=== PATIENT | female | born 1950 | race Caucasian/White ===

== ENCOUNTER 2017-03-22 06:46 | Inpatient (IN) | payer OTHER, MEDICARE ==
[~2017-03-22] VITALS: Ht 149.9 cm; Wt 36.7 kg
[2017-03-22 06:47] VITALS: BP 148/90
[2017-03-22 07:04] LABS: BE -7.5 mmol/L (-2 to +3); HCO3 19.3 mmol/L (22.0-26.0); PCO2 43.8 mmHg (35.0-45.0); PO2 90.7 mmHg (75.0-100.0)
[2017-03-22 07:06] LABS: pH 7.262 (7.340-7.450)
[2017-03-22 07:28] LABS: HEMATOCRIT 45.7 % (37.0-47.0); HEMOGLOBIN 15.2 gm/dL (12.0-15.0); MCH 32.7 pg (26.0-34.0); MCHC 33.3 g/dL (28.0-37.0); MCV 98.3 fL (80.0-100.0); MPV 8.3 fl. (7.2-11.1); NUCLEATED RBCS 0 /100WBC; PLATELET COUNT* 344 thou/uL (150-400); RBC 4.65 mil/uL (4.20-5.00); RDW-CV 12.8 % (10.5-14.5); WBC 13.6 thou/uL (4.0-11.0)
[2017-03-22 07:33] LABS: CALCIUM 7.8 mg/dL (8.5-10.1); CREATININE 0.8 mg/dL (0.6-1.3); POTASSIUM 3.7 mmol/L (3.5-5.1)
[2017-03-22 07:44] LABS: TOTAL BILIRUBIN 0.7 mg/dL (<0.1-1.0); TOTAL PROTEIN 5.6 g/dL (6.4-8.2); TROPONIN-I LEVEL 0.07 ng/mL (<0.06)
[2017-03-22 08:01] LABS: ABSOLUTE EOSINOPHILS 0.1 thou/uL (0.0-0.7); ABSOLUTE LYMPHOCYTES 0.8 thou/uL (0.8-5.3); ABSOLUTE NEUTROPHILS 12.6 thou/uL (1.6-8.1)
[2017-03-22 08:02] LABS: PLATELET ESTIMATE ADEQUATE
[2017-03-22 09:26] VITALS: BP 126/69
--- NOTE | 2017-03-22 10:00 | NUR ---
CARLIE NOTIFIED UPON PT RETURN. PT CONNECTED TO MONITOR AND O2
[2017-03-22 10:35] VITALS: BP 128/81
[2017-03-22 12:03] VITALS: BP 125/89
--- NOTE | 2017-03-22 14:44 | EKG ---
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 : 1950 Requested By: Chemo Parekh Order Number: [id number] MD: Vinnie Posada Measurements Intervals [place] Rate: 122 P: 0 MN: 105 QRS: -75 QRSD: 125 T: 102 QT: 347 QTc: 495 Interpretive Statements Sinus tachycardia left axis LBBB Artifact in lead(s) I,III,aVR,aVL,aVF No previous ECG available for comparison Electronically Signed On 03-22-2017 14:44:27 MAPPING ANALYST by Vinnie Posada [email or web address] <ELECTRONICALLY SIGNED> By: Vinnie Posada MD, [facility] 03/22/17 1444 0650 0650 Vinnie Posada MD, [facility] /EPI
[2017-03-22 16:00] VITALS: BP 115/72; BP 138/84; BP 145/84
--- NOTE | 2017-03-22 16:45 | 2DMMODE ---
[place] [address] 2 D/M-MODE ECHOCARDIOGRAM Name: THUY LIN Room: [address] [place] [facility]#: [id number] Admission: 03/22/17 Attend Phys: Zac Jackson Discharge: Date of : 46 Date of Service: 03/22/17 1645 Report #: [id number] THIS REPORT FOR: //name// APPROVED REPORT Study performed: 03/22/2017 14:50:34 EXAM: Comprehensive 2D, Doppler, and color-flow Echocardiogram Patient Location: In-Patient Room #: 201 Status: routine BSA: 1.80 HR: 64 bpm BP: 125/89 mmHg Rhythm: NSR Other Information Technically limited study due to subcostal views only, no rib space, 89 lbs. Indications Dyspnea Elevated Troponin 2D Dimensions LVEF(%): 27.30 (>50%) IVSd: 6.59 (7-11mm) LVOT Diam: 17.14 (18-24mm) LVDd: 47.66 mm PWd: 8.28 (7-11mm) Ascending Ao: 30.45 (22-36mm) LVDs: 41.62 (25-40mm) Aortic Root: 28.81 mm Hogue's LVEF: 27.30 % Aortic Valve AoV Peak Mohit.: 1.04 m/s AO Peak Gr.: 4.32 mmHg LVOT Max P.96 mmHg AO Mean Gr.: 2.57 mmHg LVOT Mean P.41 mmHg LVOT Max V: 0.70 m/s AO V2 VTI: 15.59 cm LVOT Mean V: 0.58 m/s PARTHA (VTI): 2.19 cm2 LVOT V1 VTI: 14.77 cm Mitral Valve E/A Ratio: 1.85 MV Decel. Time: 122.32 ms MV E Max Mohit.: 0.73 m/[place] [address] 2 D/M-MODE ECHOCARDIOGRAM Name: THUY LIN Room: [address] IN .R.#: [id number] Admission: 03/22/17 Attend Phys: Zac Jackson Discharge: Date of : 46 Date of Service: 03/22/17 1645 Report #: [id number] MV PHT: 35.47 ms MVA (PHT): 6.20 cm2 Pulmonary Valve PV Peak Mohit.: 0.97 m/s PV Peak Gr.: 3.73 mmHg Left Ventricle The left ventricle is normal size. There is severe global hypokinesis that appears more pronounced in the anterior wall and septum. There is normal left ventricular wall thickness. Left ventricular systolic function is severely decreased. LVEF is 30-35%. This study is not technically sufficient to allow evaluation of the LV diastolic function. Right Ventricle The right ventricle is normal size. The right ventricular systolic function is normal. Atria The left atrium size is normal. The right atrium size is normal. Aortic Valve The aortic valve is normal in structure. Mild aortic regurgitation. There is no aortic valvular stenosis. Mitral Valve The mitral valve is normal in structure. Mild mitral regurgitation. No evidence of mitral valve stenosis. Tricuspid Valve The tricuspid valve is normal in structure. Unable to assess PA pressure. Trace tricuspid regurgitation. Pulmonic Valve The pulmonary valve is normal in structure. There is no pulmonic valvular regurgitation. Great Vessels The aortic root is normal in size. IVC is normal in size and collapses with >50% inspiration Pericardium There is trace pericardial effusion without evidence of [place] [address] 2 D/M-MODE ECHOCARDIOGRAM Name: THUY LIN Room: [address] IN [facility]#: [id number] Admission: 03/22/17 Attend Phys: Zac Jackson Discharge: Date of : 46 Date of Service: 03/22/17 1645 Report #: [id number] <Conclusion> The left ventricle is normal size. There is normal left ventricular wall thickness. Left ventricular systolic function is severely decreased. LVEF is 30-35%. There is severe global hypokinesis that appears more pronounced in the anterior wall and septum. Mild mitral regurgitation. Mild aortic regurgitation. There is trace pericardial effusion without evidence of tamponade. <ELECTRONICALLY SIGNED> By: Yobani Robert MD, FACC 03/22/17 1645 44 44 Yobani Robert MD, FACC /INF
[2017-03-22 18:08] LABS: APTT 24.2 Seconds (25.0-31.3); INR 1.1; PROTIME 10.4 Seconds (9.20-11.50)
[2017-03-22 18:15] LABS: CALCIUM 8.1 mg/dL (8.5-10.1); CREATININE 0.8 mg/dL (0.6-1.3); POTASSIUM 3.3 mmol/L (3.5-5.1); TROPONIN-I LEVEL 0.5 ng/mL (<0.06)
[2017-03-22 20:00] VITALS: BP 134/77
--- NOTE | 2017-03-22 20:07 | NUR ---
ASSUMED PT CARE FROM [facility] AT APPROX 1200. PT A/O X4, DENIES PAIN. PT SPOKE TO CITLALI FOX AND DR SEGURA, PT TO HAVE A CARDIAC CATH TOMORROW. PT ANXIOUS, QUESTIONS ANSWERED. PT EDUCATED ON THE PROCEDURE. PT USES CALL LIGHT APPRORIALTY. REPORT GIVEN TO TESS BAEZ
[2017-03-23] VITALS (12 sets, daily range): BP systolic 96–121; BP diastolic 61–78
[2017-03-23 05:38] LABS: HEMATOCRIT 42.5 % (37.0-47.0); HEMOGLOBIN 14.3 gm/dL (12.0-15.0); MCHC 33.7 g/dL (28.0-37.0); MCV 97.9 fL (80.0-100.0); MPV 8.5 fl. (7.2-11.1); RBC 4.34 mil/uL (4.20-5.00); RDW-CV 12.7 % (10.5-14.5); WBC 8.4 thou/uL (4.0-11.0)
[2017-03-23 05:41] LABS: CHOLESTEROL 154 mg/dL (<200); HDL CHOLESTEROL 49 mg/dL (>40); LDL CHOLESTEROL 96 mg/dL (<100); TC:HDL 3.1 Ratio (Not establshd); TRIGLYCERIDE 49 mg/dL (<150); VLDL 10 mg/dL (<40)
[2017-03-23 05:55] LABS: SERUM ASSESSMENT CLEAR
[2017-03-23 06:13] LABS: BE 0.1 mmol/L (-2 to +3); HCO3 23.5 mmol/L (22.0-26.0); PCO2 34.7 mmHg (35.0-45.0); PO2 99.3 mmHg (75.0-100.0); pH 7.449 (7.340-7.450)
--- NOTE | 2017-03-23 06:55 | NUR ---
ASSUMED CARE AROUND 1930. PT A/OX4, APPEARED TO REST WELL TONIGHT. PT CONFUSED AROUND 2400 STATING SHE DIDN'T KNOW WHERE SHE WAS. PT WASN'T ABLE TO TELL ME WHAT PROCEDURE SHE WAS HAVING TODAY, LATER SHE PIECED IT TOGETHER. PT SEEMS TO USE HUMOR TO MASK DISORIENTATION. TELE MONITOR TRACING SR/ST/BBB. ON 2L NC. IV'S SALINE LOCKED. UP SBA TO BSC. DENIED ANY PAIN. NPO SINCE MIDNIGHT FOR CARDIAC CATH TODAY. VSS. BEDALARM IN PLACE. CALL LIGHT IN REACH, WILL CONTINUE WITH PLAN OF CARE.
[2017-03-23 07:33] LABS: ALBUMIN 3.1 g/dL (3.4-5.0); CALCIUM 8.2 mg/dL (8.5-10.1); CREATININE 0.8 mg/dL (0.6-1.3); PHOSPHORUS* 4.2 mg/dL (2.5-4.9); TOTAL BILIRUBIN 0.4 mg/dL (<0.1-1.0); TOTAL PROTEIN 5.9 g/dL (6.4-8.2)
[2017-03-23 07:35] LABS: POTASSIUM 4.8 mmol/L (3.5-5.1)
--- NOTE | 2017-03-23 08:09 | CON ---
[address] [address] CONSULTATION Name: THUY LIN Room: [address] IN M.R.#: [id number] Admission: 03/22/17 Attend Phys: Lakhwinder Malik Discharge: Date of : 46 Report #: [id number] THIS REPORT FOR: //name// CC: DEVEN Parham DO DATE OF SERVICE: 03/22/2017 ATTENDING PHYSICIAN: Zac Jackson DO. INDICATION FOR CONSULTATION: Dyspnea, possible COPD, mild hypoxemia. CLINICAL SUMMARY: The patient is a 66-year-old female, current smoker, about half pack a day, who had sudden dyspnea on exertion, which woke her up this morning. She states that around 4:00 a.m., she thought the house was warm at 73 degrees. She denies any chest pain, but she states she could not catch her breath. She waited for a few minutes, is not on any inhalers or oxygen at home, and was seen in the Emergency Room. Her D-dimer was mildly elevated, so they did a CT angio of the chest, which showed no pulmonary emboli. She had some mild fluid overload with some small bilateral pleural effusions and one subcarinal lymph node of about 25-30 mm and it was 10 mm in length. She denies having any prior chest x-rays. She is a smoker about a half pack a day. Denies any fever, chills, sweats, cough, sick or ill contacts. She states she had her flu shot this fall. She does work for [employer] and she states she is around several people at a time. PAST MEDICAL HISTORY: Long history of polio when she was 1 years old, she was in an iron lung in [place], [place]. She does not know whether it is for 6 months or a year. States she was not on oxygen at home. Her right leg has been somewhat shortened and weaker. She has some atrophy of her right leg. She has had 3 surgeries for scoliosis, mostly at lumbar and thoracic spine. She states she does not think she is getting any shorter at least at this time. Has never been on inhalers, never been on oxygen at home. She has recently had some elevated blood sugars. She is not certain what that is about. She was not on any insulin at home. She does have a history of mild hypertension and again, polio as noted before. PAST SURGICAL HISTORY: Includes back surgery x 3, mostly in the remote past. MEDICATIONS: Again, no home medications. Currently in the hospital, she is on oxygen at 2 liters and she is on ceftriaxone 1 g daily, Solu-Medrol 62.5 mg q. 8 hours, and oxygen at 2 liters. FAMILY HISTORY: Negative for premature [place] [address] CONSULTATION Name: THUY LIN Carol Room: [address] IN [facility].#: [id number] Admission: 03/22/17 Attend Phys: Lakhwinder Malik Discharge: Date of : 46 Report #: [id number] SOCIAL HISTORY: Lives at home. She has one daughter who lives in the area, seems concerned about her care. The patient smokes a half pack a day, has a 30 or 40 pack year history of smoking. Denies any alcohol or illicit drug use. No history of recent travel or sick or ill contacts. REVIEW OF SYSTEMS: A 14-point review of systems reviewed and negative except for pertinent positives noted in HPI. PHYSICAL EXAMINATION: GENERAL: Thin, frail, 66-year-old female, in no acute distress. She can talk to me in sentences. VITAL SIGNS: Her blood pressure is 125/88. Her heart rate is 106 at rest. Respirations are 16, saturations on 2 liters and her saturation is 95%. Her temperature is 35.4 degrees. She is 4 feet 10 inches tall. Her weight was reported at 86 pounds or approximately 39 kg. Her BMI appears to be about 16. HEENT: Unremarkable except for muscle wasting. NECK: Shows significant loss of musculature. Her sternocleidomastoid muscles are not hypertrophied. There is no cervical or supraclavicular adenopathy. Supraclavicular fossa is quite thin. CHEST: Shows diminished breath sounds, but without wheeze. No prolonged expiratory phase. She has a weak cough reflex. Her intercostal ribs are seen throughout. Postoperative scoliosis changes are seen thoracic and lumbar spine posteriorly. CARDIOVASCULAR: Shows diminished heart tones, regular rate and rhythm. Heart rate is 110. No S3 is noted. No murmur, gallop or rub. ABDOMEN: Soft, thin, without masses or megaly. EXTREMITIES: Right leg is somewhat shorter than left leg. Right leg is atrophied with loss of her gastroc muscle and some flexion abnormalities. No DVT are noted any either leg. Homans sign is negative. No cyanosis, clubbing or edema. SKIN: Dry and intact. NEUROLOGIC: She has muscle weakness in her diaphragms, abdomen and also in her leg strength. LABORATORY DATA: Hemoglobin 15, white count is 13,000, platelets are 344,000. Sodium is 142, potassium is 3.7, chloride is 108, BUN is 12, creatinine 0.8 and glucose was 240 and then 260, carbon dioxide level is 26. ABGs on 4 liters showed a pO2 of 90, a pH of 7.26, pCO2 is 44, bicarb is 19, sats 95%. Chest x-ray and then CT angio of the chest did not show any pulmonary emboli. She has marked kyphoscoliosis and on CT angio of the chest, there are small pleural effusions about 2 cm each, not enough to be tapped and one subcarinal lymph node, which is somewhat ill-defined, either 25-30 mm in diameter. Lung parker otherwise were fairly clear. Some peribronchial cuffing was noted. IMPRESSION: [address], [place] [address] CONSULTATION Name: RILEYTHUY Carol Room: [address] IN [facility]#: [id number] Admission: 03/22/17 Attend Phys: Lakhwinder Malik Discharge: Date of : 46 Report #: [id number] 1. Dyspnea, multifactorial, most likely related to restrictive lung disease, kyphoscoliosis and postpolio syndrome. 2. Cachexia and weight loss. 3. Subcarinal adenopathy, etiology unclear. PLAN: Would continue breathing treatments and steroids, work on incentive spirometry, somewhat poor prognosis is noted with people of postpolio syndrome. She does not have significant hypercarbia at least at this time, but she may have some pulmonary artery hypertension. Await and see what Cardiology thinks and see if they do an echo and see if she has pulmonary artery enlargement and pulmonary artery hypertension. We will try Lasix and oxygen at this time. She may need room air exercise oximetry before she is discharged to see if she will need supplemental oxygen at home. Full PFTs as an outpatient in 6-8 weeks would be helpful to see if this is obstructive or restrictive defect. Occasionally, BiPAP at night will be helpful if she truly has postpolio syndrome and she may need a sleep study at some point in time. Thanks again for allowing us to participate in this lady's care. Overall prognosis is somewhat guarded, but we will see what we can do the meantime to improve her clinical situation. <ELECTRONICALLY SIGNED> By: Darwin Mohamud MD 03/23/17 0809 1213 [id number] Mohamud MD /nt
--- NOTE | 2017-03-23 08:32 | NUR ---
PT RESTING IN BED, APPEARS ALERT O X 4, DENIES CHEST PAIN, SON, PAIN OR DISCOMFORT, PT IS NPO FPR CARDIAC CATTH, SL
--- NOTE | 2017-03-23 09:30 | NUR ---
PT NPO FOR CARDIAC CATH. IS AL. PT TAKEN OUT OF BED, BES WAS ZERO OUT, PT REWIGHTED, SHOWS 37 KG, CONSENT SIGNED AND IN CHART
--- NOTE | 2017-03-23 11:09 | NUR ---
CM ASSESSMENT: Pt is A&O. Resides at home. Independent with ADLs, continues to work. No DME. No hx of HH or SNF. CM provided with DPOA paperwork. Supportive family that is involved in POC. Goal is to return home at me. No needs anticipated. Following.
[2017-03-23 12:06] LABS: eGFR IF AFRICAN AMERICAN 105 (>59)
--- NOTE | 2017-03-23 13:57 | NUR ---
PT LEAVING FLOOR FOR CARDIAC CATH
--- NOTE | 2017-03-23 15:20 | NUR ---
PT TFO FLOOE FROM FISHER EEL, APPEARS ALERT O X 4, DENIES CHEST PAIN, SOB, RAD-STAT DEVICE TO R WRIST,INFLATED, R HAND APPEARS WARM, DENIES ANY NIMBNESS OR TINGLING TO R UPPER EXT, ON O2 AT 2L PER NC. IVD CONT AT 1/2 NS AT 75 ML PER HOUR
--- NOTE | 2017-03-23 18:56 | NUR ---
PT RESTING IN BED, APPEARS ALERT O X 4, DENIES CHEST PAIN, SOB, PAIN OR DISCOMFORT, IVHF INFUSING AT 75 ML PER HOUR , ORDER TO D/C IVF AT 2200. [facility] CATH SITE APPEARS INTACT PROGRESSIBFG TOWARDS GOAL
[2017-03-23 21:11] LABS: PARATHYROID HORMONE 66 pg/mL (15-65)
[2017-03-24 00:32] VITALS: BP 106/70
[2017-03-24 03:14] LABS: GLYCOHEMOGLOBIN (HGB A1C) 5.3 % (4.8-5.6)
[2017-03-24 04:07] VITALS: BP 97/61
--- NOTE | 2017-03-24 04:54 | NUR ---
ASSUMED CARE AROUND 1930. PT A/OX4 AND PLEASANT, FORGETFUL AT TIMES. RESTED MOST THE NIGHT. TELE MONITOR TRACING SR/ST/BBB WITH HR UP TO 110'S. ON ROOM AIR. UP SBA TO BR. IV SALINE LOCKED AT THIS TIME. RIGHT RADIAL CATH SITE SOFT, NO BLEEDING OR HEMATOMA NOTED. VSS, AFEBRILE. PT DENIES ANY PAIN, NO NEW CONCERNS VOICED TONIGHT. CALL LIGHT IN REACH, BEDALARM ON, WILL CONTINUE WITH PLAN OF ARE.
[2017-03-24 06:21] LABS: ABSOLUTE LYMPHOCYTES 0.6 thou/uL (0.8-5.3); ABSOLUTE MONOCYTES 0.3 thou/uL (0.0-1.2); ABSOLUTE NEUTROPHILS 10.7 thou/uL (1.6-8.1); BASOPHILS 0.2 %; HEMATOCRIT 42.8 % (37.0-47.0); HEMOGLOBIN 14.2 gm/dL (12.0-15.0); MCH 32.4 pg (26.0-34.0); MCHC 33.2 g/dL (28.0-37.0); MCV 97.4 fL (80.0-100.0); MONOCYTES 2.2 %; MPV 7.9 fl. (7.2-11.1); NUCLEATED RBCS 0 /100WBC; PLATELET COUNT* 313 thou/uL (150-400); POLYS 92.6 %; WBC 11.6 thou/uL (4.0-11.0)
[2017-03-24 06:37] LABS: CALCIUM 8.3 mg/dL (8.5-10.1); CREATININE 0.6 mg/dL (0.6-1.3)
--- NOTE | 2017-03-24 07:51 | NUR ---
PT RESTING IN BED, APPEARS ALERT O X 4, DENIES CHEST PAIN, SOB, PAIN OR DISCOMFORT, R RADIAL CATH SITE APPEARS SOFT IUNTACT WITHOUT EVIDENCE OF BLEEDING
[2017-03-24 07:53] VITALS: BP 114/76
--- NOTE | 2017-03-24 10:35 | CARD ---
[facility] [address] [place] [address] CARDIAC CATH REPORT Name: THUY LIN Carol Room: [address] IN ..#: [id number] Admission: 03/22/17 Attend Phys: Lakhwinder Malik Discharge: Date of : 46 Report #: [id number] THIS REPORT FOR: //name// APPROVED REPORT Patient Details Patient Status: In-Patient Room #: 201 The patient is a 66 year-old female Event Personnel Vinnie Posada Label Tacker, Katrin Llamas RN Buckle Attacher, Darwin Melchor (R) Monitor, Carol Garcia Scrub Procedures Performed Left Heart Cath w/or w/o Coronaries Indication Cardiomyopathy Admission/Lab Medications/Medications given during procedure Heparin Unfract. Procedure Narrative The patient was brought electively to the Cardiac Catheterization Laboratory and was prepped and draped in a sterile manner. The right wrist was infiltrated with 1% Lidocaine subcutaneous anesthesia. A Slender Glidesheath sheath was inserted into the Right Radial Artery. Coronary angiography was performed using coronary diagnostic catheters. The right coronary system was accessed and visualized with a Diagnostic JR4 catheter. The left coronary system was accessed and visualized with a Diagnostic JL 3.5 catheter. The left ventricle was accessed and visualized with a Diagnostic Straight Pig catheter. Left ventricular/Aortic Valve gradient assessed via catheter pullback. Left ventriculogram was performed in BALDERAS projection. Closure device was deployed with a Fr Reg Vascband. There was no hematoma. Fluoro Time: 2.6 minutes Dose: DAP 21113 cGycm2 175 mGy Contrast Type and Amount: Omnipaque 40 ml Coronary Angiography The patient's coronary anatomy is [place] [address] CARDIAC CATH REPORT Name: LOTUSCHANCETHUY Carol Room: [address] IN [facility]#: [id number] Admission: 03/22/17 Attend Phys: Lakhwinder Malik Discharge: Date of : 46 Report #: [id number] Left Main 0% stenosis LAD 40% proximal and 50% mid stenosis Circumflex 0% stenosis Right Coronary 40% proximal and 50% mid stenosis Ramus 80% proximal stenosis Left Ventriculography The left ventricle is mildly dilated in size with contractility. The left ventricular ejection fraction is estimated to be 25-30%. There is 1+ mitral insufficiency. Hemodynamics The aortic pressure is 107/64 mmHg with a mean of 76 mmHg. The left ventricular pressure is 100/4 mmHg with a mean of mmHg. The left ventricular end diastolic pressure is 20 mmHg. There was no gradient across the aortic valve upon pullback. Pullback from the left ventricle to the aorta revealed no gradient across the aortic valve. Conclusion 1. moderate CAD 2. dilated cardiomyopathy Recommendations Cardiac Rehabilitation Referral Aggressive Medical Therapy <ELECTRONICALLY SIGNED> By: Vinnie Posada MD, FACC 03/24/17 1034 1034 1034David Osvaldo Posada MD, [facility] /INF
[2017-03-24] MEDS ORDERED: NEBULIZER INH (11:16)
[2017-03-24] MEDS ORDERED: PREDNISONE 10 M10 MG PO (11:20)
[2017-03-24] MEDS ORDERED: KEFLEX500 M1 PO (11:23)
[2017-03-24] MEDS ORDERED: CARVEDILOL3.125 MG PO (11:26)
[2017-03-24] MEDS ORDERED: FUROSEMIDE 20 M20 M1 PO (11:29)
[2017-03-24] MEDS ORDERED: DUONEB 2.5-0.5 M3 ML INH (11:33)
[2017-03-24] MEDS ORDERED: COZAAR 25 MG TA25 M1 PO (11:35)
[2017-03-24] MEDS ORDERED: ALDACTONE25 MG PO (11:37)
[2017-03-24] MEDS ORDERED: NICOTINE TRANSD21 M1 TRANSDERM (11:41)
[2017-03-24 11:42] VITALS: BP 110/75
[2017-03-24] MEDS ORDERED: NICOTINE TRANSD21 M1 TRANSLING (11:44)
== END 2017-03-24 15:13 | disposition home health service (06) | DRG 286 ==
LOC: M.ERS 06:46 → M.TBA-ER 08:18 → M.2W 10:09
PROVIDERS: Emergency Medicine Emergency Medical Services; Nurse Practitioner Family; ADMIT Internal Medicine
DX: I50.43 Acute on chronic combined systolic (congestive) and diastolic (congestive) heart failure (principal); J96.01 Acute respiratory failure with hypoxia; J96.02 Acute respiratory failure with hypercapnia; J44.1 Chronic obstructive pulmonary disease with (acute) exacerbation; R64 Cachexia; E87.2 Acidosis; Z68.1 Body mass index [BMI] 19.9 or less, adult; R65.10 Systemic inflammatory response syndrome (SIRS) of non-infectious origin without acute organ dysfunction; I11.0 Hypertensive heart disease with heart failure; F17.210 Nicotine dependence, cigarettes, uncomplicated; I25.10 Atherosclerotic heart disease of native coronary artery without angina pectoris; R59.9 Enlarged lymph nodes, unspecified; E11.65 Type 2 diabetes mellitus with hyperglycemia; M47.895 Other spondylosis, thoracolumbar region; M40.295 Other kyphosis, thoracolumbar region

== ENCOUNTER 2017-04-04 11:37 | Observation (INO) | payer OTHER, MEDICARE ==
[2017-04-04] VITALS (9 sets, daily range): BP systolic 98–112; BP diastolic 49–62
[~2017-04-04] VITALS: Ht 149.9 cm; Wt 37.2 kg
--- NOTE | ~2017-04-04 | H ---
[address] [address] HISTORY AND PHYSICAL Name: THUY LIN Room: [address] Dillan Saenz#: [id number] Admission: 04/04/17 Attend Phys: Miguel Erickson MD, Discharge: 04/05/17 Date of : 46 Report #: [id number] THIS REPORT FOR: //name// Please refer to the History and Physical performed in the physician's office. By: 1540Medical Records Staff JOSE L /BYRON
[~2017-04-04 11:37] MED LIST: ALDACTONE25 MG PO; CARVEDILOL3.125 MG PO; COZAAR 25 MG TA25 M1 PO; DUONEB 2.5-0.5 M3 ML INH; FUROSEMIDE 20 M20 M1 PO; KEFLEX500 M1 PO; NEBULIZER INH; NICOTINE TRANSD21 M1 TRANSDERM; NICOTINE TRANSD21 M1 TRANSLING; PREDNISONE 10 M10 MG PO
[2017-04-04 12:33] LABS: HEMATOCRIT 46.4 % (37.0-47.0); HEMOGLOBIN 15.7 gm/dL (12.0-15.0); MCH 32.9 pg (26.0-34.0); MCHC 33.9 g/dL (28.0-37.0); MCV 97.2 fL (80.0-100.0); MPV 7.4 fl. (7.2-11.1); RBC 4.78 mil/uL (4.20-5.00); RDW-CV 12.8 % (10.5-14.5); WBC 14.6 thou/uL (4.0-11.0)
[2017-04-04 12:42] LABS: ANION GAP 6 mmol/L (7-16); BUN 15 mg/dL (7-18); CALCIUM 8.2 mg/dL (8.5-10.1); CHLORIDE 101 mmol/L (98-107); CO2 31 mmol/L (21-32); CREATININE 0.6 mg/dL (0.6-1.3); GLUCOSE 84 mg/dL (70-99); POTASSIUM 4.2 mmol/L (3.5-5.1); SODIUM 138 mmol/L (136-145)
[2017-04-04 12:46] LABS: ALBUMIN 3.1 g/dL (3.4-5.0); ALKALINE PHOSPHATASE 60 U/L (46-116); CHOLESTEROL 206 mg/dL (<200); HDL CHOLESTEROL 76 mg/dL (>40); LDL CHOLESTEROL 101 mg/dL (<100); SGOT 25 U/L (15-37); SGPT 38 U/L (30-65); TC:HDL 2.7 Ratio (Not establshd); TOTAL BILIRUBIN 0.7 mg/dL (<0.1-1.0); TOTAL PROTEIN 5.9 g/dL (6.4-8.2); TRIGLYCERIDE 146 mg/dL (<150); VLDL 29 mg/dL (<40)
[2017-04-04 12:47] LABS: SERUM ASSESSMENT Clear
--- NOTE | 2017-04-04 16:25 | EKG ---
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25 : 1950 Requested By: Miguel Erickson Order Number: [id number] Sonia MD: Miguel Erickson Measurements Intervals [place] Rate: 69 P: 75 ME: 160 QRS: -81 QRSD: 131 T: 119 QT: 412 QTc: 442 Interpretive Statements Sinus rhythm LEFT BUNDLE BRANCH BLOCK with LAD Compared to ECG 03/22/2017 06:5 Sinus tachycardia no longer present Electronically Signed On 04-04-2017 16:25:37 [employer]PORATION PILOT by Miguel Erickson [email or web address] <ELECTRONICALLY SIGNED> By: Miguel Erickson MD, [facility] 04/04/17 1625 1457 1457 Miguel Erickson MD, FAC /EPI
--- NOTE | 2017-04-04 16:51 | CARD ---
[address] [address] CARDIAC CATH REPORT Name: THUY LIN Room: [address] IN .R.#: [id number] Admission: 04/04/17 Attend Phys: Miguel Erickson MD, Discharge: Date of : 46 Report #: [id number] THIS REPORT FOR: //name// APPROVED REPORT Patient Details Patient Status: Out-Patient Room #: The patient is a 66 year-old female Event Personnel Miguel Erickson Paint And Table Edger, Katrin Llamas RN Ethics Officer, Darwin Melchor (R) Monitor, BoraFaiza RTR Scrub Procedures Performed Left heart catheterization, selective coronary artery, and percutaneous coronary intervention to the proximal circumflex and mid left anterior descending coronary arteries Indication Dyspnea, Unstable angina Risk Factors Hypercholesterolemia, Hypertension Previous Procedures/Diagnoses Previous CHF Admission/Lab Medications/Medications given during procedure Angiomax bolus and infusion Procedure Narrative The patient was brought electively to the Cardiac Catheterization Laboratory and was prepped and draped in a sterile manner. The right femoral was infiltrated with 1% Lidocaine subcutaneous anesthesia. A [place] 6 FR sheath was inserted into the Right Femoral Artery. Coronary angiography was performed using coronary diagnostic catheters. The left coronary system was accessed and visualized with a Diagnostic JL 4 catheter. The left ventricle was accessed and visualized with a Diagnostic catheter. Left ventricular/Aortic Valve gradient assessed via catheter pullback. Pre-demployment femoral angiogram was performed . Closure device was deployed with a Fr MynxGrip 6/7F. The patient tolerated the procedure well and there were no complications associated with the procedure. [place] [address] CARDIAC CATH REPORT Name: THUY LIN Room: [address]#: [id number] Admission: 04/04/17 Attend Phys: Miguel Erickson MD, Discharge: Date of : 46 Report #: [id number] Intraoperative Conscious Sedation Sedation start time: 13:07 Case end Time: 14:12 Fentanyl 25 mcg Versed 1 mg Fluoro Time: 17.9 minutes Dose: DAP 75608 cGycm2 976 mGy Contrast Type and Amount: Visipaque 350 ml Diagnostic Cath Left Main 0% narrowing LAD 40% proximal calcified stenosis with 80% heavily calcified mid vessel stenosis and 40% distal LAD narrowing Circumflex Prominent though nondominant vessel with 90% heavily calcified proximal stenosis and 40% mid vessel narrowing Right Coronary Dominant" artery with a recently defined 40% mid vessel narrowing Left Ventriculography Left Ventriculography was not performed. IVUS Intravascular Ultrasound was performed on the proximal circumflex artery segment vessel. IVUS Findings NC Trek RX 2.75 X 12 Hemodynamics The aortic pressure is 119/56 mmHg with a mean of 80 mmHg. The left ventricular pressure is 114/-3 mmHg with a mean of mmHg. The left ventricular end diastolic pressure is 11 mmHg. There was no gradient across the aortic valve upon pullback. PCI Technique Lesion Anticoagulation was achieved with Angiomax. Patient was preloaded with Angiomax IV 6 ml. Percutaneous coronary intervention was performed on the proximal circumflex artery segment. The lesion stenosis prior to intervention was 90% with RICK 3 flow. A 6FR XB 3.5 100CM Guide Catheter was used to engage the ostium. A IG: BMW 190cm Interventional Guidewire was used to cross the lesion. BALLOON DILATION A Balloon catheter Trek RX 2.5 X 12 was inserted and inflated up to 16.00atm for 23seconds. [place] [address] CARDIAC CATH REPORT Name: THUY LIN Carol Room: [address]#: [id number] Admission: 04/04/17 Attend Phys: Miguel Erickson MD, Discharge: Date of : 46 Report #: [id number] STENT DEPLOYMENT A drug-eluting stent Xience Alpine RX 2.75X12 was inserted and inflated up to 18atm for 15seconds. POST STENT DEPLOYMENT BALLOON DILATION A Balloon catheter NC Trek RX 3.0 X 8 was inserted and inflated up to 18atm for 10seconds. Final angiography reveals 10 % stenosis with RICK 3 flow. PCI Technique Lesion Percutaneous coronary intervention was performed on the proximal circumflex artery segment. BALLOON DILATION A Balloon catheter NC Trek RX 2.75 X 12 was inserted and inflated up to 24.00atm for 36seconds. Additional Inflation: 25.00atm for 24seconds. Additional Inflation: 20.00atm for 19seconds. STENT DEPLOYMENT A drug-eluting stent Xience Alpine RX 2.75X12 was inserted and inflated up to 12.00atm for 14seconds. Additional Inflation: 15.00atm for 12seconds. POST STENT DEPLOYMENT BALLOON DILATION A Balloon catheter NC Trek RX 3.0 X 8 was inserted and inflated up to 16.00atm for 15seconds. Additional Inflation: 18.00atm for 14seconds. PCI Technique Lesion 2 Percutaneous Coronary Intervention was performed on the mid left anterior descending artery segment. Patient was preloaded with Angiomax IV 6 ml. Percutaneous coronary intervention was performed on the mid left anterior descending artery segment. The lesion stenosis prior to intervention was 80% with RICK 3 flow. A 6FR XB 3.5 100CM Guide Catheter was used to engage the ostium. A IG: BMW 190cm Interventional Guidewire was used to cross the lesion. Balloon Dilation A Balloon catheter Trek RX 2.25 X 12 was inserted and inflated up to 10.00atm for 14seconds. Stent Deployment A drug-eluting stent Xience Alpine RX 2.25X12 was inserted and inflated up to 14atm for 15[place]. [place] [address] CARDIAC CATH REPORT Name: THUY LIN Room: [address] IN [facility].#: [id number] Admission: 04/04/17 Attend Phys: Miguel Erickson MD, Discharge: Date of : 46 Report #: [id number] Post Stent Deployment Balloon Dilation A Balloon catheter NC Trek RX 2.25 X 8 was inserted and inflated up to 18atm for 10seconds. Final angiography reveals 10 % stenosis with RICK 3 flow. PCI Technique Lesion Percutaneous coronary intervention was performed on the mid left anterior descending artery segment. BALLOON DILATION A Balloon catheter NC Trek RX 2.25x12 was inserted and inflated up to 16.00atm for 15seconds. Additional Inflation: 18atm for 14seconds. Additional Inflation: 20atm for 10seconds. STENT DEPLOYMENT A drug-eluting stent Xience Alpine RX 2.25X12 was inserted and inflated up to 10atm for 12seconds. Additional Inflation: 12atm for 10seconds. POST STENT DEPLOYMENT BALLOON DILATION A Balloon catheter NC Trek RX 2.25 X 8 was inserted and inflated up to 18atm for 12seconds. Additional Inflation: 20atm for 13seconds. Additional Inflation: 21atm for 11seconds. Conclusion #1 significant coronary artery disease characterized by following: A 40% calcified proximal 80% calcified mid and 40% distal LAD narrowing, B prominent though nondominant circumflex with 90% heavily calcified proximal stenosis and 40% mid vessel narrowing, C dominant right coronary artery with 40% mid vessel narrowing #2 normal left-sided hemodynamics study, #3 successful percutaneous coronary intervention deployment of drug-eluting stent at site of 90% heavily calcified proximal circumflex stenosis with 10% residual stenosis following stent deployment and RICK-3 flow the distal vessel, #4 successful percutaneous coronary intervention deploying drug-eluting stent at site of 80% calcified mid LAD stenosis with 10% [address] [address] CARDIAC CATH REPORT Name: THUY LIN Room: [address] IN M.R.#: [id number] Admission: 04/04/17 Attend Phys: Miguel Erickson MD, Discharge: Date of : 46 Report #: [id number] residual involving stent deployment and RICK-3 flow the distal vessel Recommendations Cardiac Rehabilitation Referral Medical Therapy Medications Administered Aspirin (any) Ticagrelor <ELECTRONICALLY SIGNED> By: Miguel Erickson MD, FACC 04/04/171650 50 50Miguel Erickson MD, FACC /INF
--- NOTE | 2017-04-04 18:42 | NUR ---
PT ADMITTED TO UNIT AROUND 1729 PT CAME FROM [facility], PT IS ALERT AND ORIENTED X 4 PT IS NOT A FALL RISK PT IS ON BEDREST LAYING WITH HEAD ELEVATED AT 15 DEGREES UNTIL 2029 PT HAS RIGHT GROIN WITH MYNX CLOSURE SITE HAS MINIMAL DRIED DRAINAGE SITE IS CLEAN INTACT SOFT PT IS SR WITH BBB ON THE MONITOR, PT IS PLEASANT AND COOPERATIVE, WILL CONTINUE TO MONITOR
[2017-04-05] VITALS: BP 105/70
[2017-04-05 04:00] VITALS: BP 110/73
--- NOTE | 2017-04-05 04:36 | NUR ---
PT ALERT ORIENTED. PT ON BEDREST UNTIL 2099 AND THEN UP WITH ASSIST. R GROIN SITED SOFT WITH SM AMT DRIED BLOOD ON DRSG APPROX 1 CM. TELEMETRY SHOW SR BBB. ALMONTE WITH CLEAR YELLOW. NS AT 100MLS/HR. DENIES PAIN. VSS. WILL CONTINUE TO MONITOR.
[2017-04-05 05:22] LABS: HEMATOCRIT 38.2 % (37.0-47.0); MCH 32.7 pg (26.0-34.0); MCHC 33.6 g/dL (28.0-37.0); MCV 97.3 fL (80.0-100.0); MPV 7.6 fl. (7.2-11.1); RBC 3.93 mil/uL (4.20-5.00); RDW-CV 12.7 % (10.5-14.5); WBC 15.5 thou/uL (4.0-11.0)
[2017-04-05 05:34] LABS: HEMOGLOBIN 12.8 gm/dL (12.0-15.0)
[2017-04-05 05:45] LABS: CALCIUM 7.5 mg/dL (8.5-10.1); CREATININE 0.5 mg/dL (0.6-1.3); POTASSIUM 4.1 mmol/L (3.5-5.1)
[2017-04-05 06:05] LABS: TROPONIN-I LEVEL 1.62 ng/mL (<0.06)
[2017-04-05 08:00] VITALS: BP 125/76
[2017-04-05 11:17] VITALS: BP 125/76
[2017-04-05] MEDS ORDERED: NITROGLYCERIN0.4 MG SUBLING (11:25)
[2017-04-05] MEDS ORDERED: BRILINTA90 MG PO (11:25)
[2017-04-05] MEDS ORDERED: ASPIR 8181 MG PO (11:26)
[2017-04-05 13:40] VITALS: BP 125/76
--- NOTE | 2017-04-05 15:41 | NUR ---
I ASSUMED CARE OF THE PATIENT AT 0700. SHE IS ALERT AND ORIENTED X4 AND IS UP WITH 1 ASSIST. BED IS IN THE LOW LOCKED POSITION AND CALL LIGHT IS IN REACH. HOURLY ROUNDING WAS COMPLETED AND PATIENT NEEDS WERE MET. PAIN IS DENIED. IV WAS D/C'D INTACT AND HOMEOSTASIS WAS ACHEIVED. RIGHT GROIN DRESSING IS C/D/I WITH A SMALL SHADOW FROM STENT PLACEMENT. PULSES ARE EQUAL AND STRONG. PATIENT WAS DISCHARGED TO HOME WITH FRIEND VIA WHEELCHAIR WITH SCRIPTS. DISCHARGE WAS UNDERSTOOD. FOLLOWUP APPOINTMENTS WERE LISTED AND DISCUSSED. ALMONTE WAS DISCHARGED AND PATIENT WAS ABLE TO VOID.
--- NOTE | 2017-04-05 17:17 | EKG ---
[place] [address] ELECTROCARDIOGRAM REPORT Name: THUY LIN Room: [address]#: [id number] Admission: 04/04/17 Attend Phys: Miguel Erickson MD, Discharge: 04/05/17 Date of : 46 Report #: [id number] THIS REPORT FOR: //name// [facility] Test Date: 2017-04-05 Test Time: 08:18:45 Pat Name: THUY LIN Department: Room: [facility] Gender: F Circulation Worker: : 1950 Requested By: Miguel Erickson Order Number: [id number] Sonia MD: Yobani Robert Measurements Intervals Aguirre Rate: 77 P: 68 KS: 162 QRS: -82 QRSD: 128 T: 95 QT: 425 QTc: 482 Interpretive Statements Sinus rhythm Left bundle branch block Compared to ECG 04/04/2017 14:57:59 No significant changes Electronically Signed On 04-05-2017 17:16:57 INCIDENT RESPONSE CONSULTANT by Yobani Robert [email or web address] <ELECTRONICALLY SIGNED> By: Yobani Robert MD, [facility] 04/05/17 1716 7 7 Yobani Robert MD, [facility] /EPI
--- NOTE | 2017-04-06 10:49 | D ---
[address] [address] DISCHARGE SUMMARY Name: LOTUSCHANCETHUY Carol Room: [address] Dillan Saenz#: [id number] Admission: 04/04/17 Attend Phys: Miguel Erickson MD, Discharge: 04/05/17 Date of : 46 Report #: [id number] THIS REPORT FOR: //name// CC: SHAHRZAD Erickson DATE OF SERVICE: 04/05/2017 FINAL DISCHARGE DIAGNOSES: 1. Unstable angina. 2. Coronary artery disease. 3. Status post percutaneous coronary intervention of the proximal circumflex and mid left anterior descending. 4. Mixed ischemic and nonischemic cardiomyopathy. 5. Hypertension. 6. Chronic obstructive pulmonary disease. 7. Tobacco abuse. PROCEDURES: 04/04/2017-left heart catheterization, selective coronary arteriography and percutaneous coronary intervention with deployment of drug-eluting stents in the proximal circumflex and mid LAD. The patient is a very pleasant 66-year-old female with a history of a cardiomyopathy and significant coronary artery disease. She presented with increasing dyspnea and mild chest discomfort. She underwent recatheterization on 04/04, which revealed 90% eccentric heavily calcified proximal circumflex stenosis with 40% proximal and 80% mid LAD stenosis. After significant lesion preparation, I deployed one 2.75 x 12 mm Xience Alpine drug-eluting stent in the proximal circumflex and one 2.25 x 12 mm Xience Alpine in the mid LAD with good angiographic result and 10% residual narrowing at both sites following stent deployment with RICK 3 flow of the distal vessel. She did well postprocedurally. There was good hemostasis at the right femoral site of catheterization. Laboratory data on 04/05, revealed sodium 139, potassium 4.1, BUN 15, and creatinine 0.5. Hemoglobin 12.8, white blood cell count 15,500 with 334,000 platelets. She ambulated in the hallways without difficulty. She was discharged to home in stable condition on the following medications: Aspirin 81 mg daily, carvedilol 3.125 mg b.i.d., cephalexin 500 mg b.i.d. for 7 days, furosemide 20 mg daily, DuoNeb q.i.d., losartan 12.5 mg daily, nicotine patch 14 mg transdermally daily, prednisone 10 mg daily, spironolactone 25 mg daily, ticagrelor 90 mg b.i.d. with 180 mg loading dose, and p.r.n. sublingual nitroglycerin. The patient is scheduled to return to see my nurse practitioner [place] [address] DISCHARGE SUMMARY Name: THUY LIN Carol Room: [address] Dillan Saenz#: [id number] Admission: 04/04/17 Attend Phys: Miguel Erickson MD, Discharge: 04/05/17 Date of : 46 Report #: [id number] 04/11/2017, at 1000 hours and myself on 06/05/2017, at 1300. The importance of cigarette smoking cessation was emphasized. The patient is discharged to home in stable condition on the aforementioned medications with followup as iterated above. <ELECTRONICALLY SIGNED> By: Miguel Erickson MD, FACC 04/06/17 1049 0929 [id number] Erickson MD, FACC /nt
== END 2017-04-05 13:58 | disposition home or self-care (01) ==
LOC: M.CL 11:37 → M.2W 14:34 → M.TBA-CV 14:34 → M.2W 17:49
PROVIDERS: ADMIT Internal Medicine
DX: I25.110 Atherosclerotic heart disease of native coronary artery with unstable angina pectoris (principal); I10 Essential (primary) hypertension; J44.9 Chronic obstructive pulmonary disease, unspecified; I25.5 Ischemic cardiomyopathy; F17.200 Nicotine dependence, unspecified, uncomplicated; Z98.61 Coronary angioplasty status

== ENCOUNTER → 2017-04-26 | Outpatient (CLI) | payer OTHER, MEDICARE ==
[~2017-04-26] MED LIST changes: +ASPIR 8181 MG PO; +BRILINTA90 MG PO; +NITROGLYCERIN0.4 MG SUBLING
[2017-04-26 10:55] LABS: CALCIUM 9.1 mg/dL (8.5-10.1); CREATININE 0.6 mg/dL (0.6-1.3); POTASSIUM 3.3 mmol/L (3.5-5.1)
== END ==
LOC: M.ULTRA 09:48
PROVIDERS: Internal Medicine
DX: I25.10 Atherosclerotic heart disease of native coronary artery without angina pectoris (principal); I10 Essential (primary) hypertension; I70.90 Unspecified atherosclerosis

== ENCOUNTER → 2017-05-11 | Outpatient (CLI) | payer OTHER, MEDICARE ==
[2017-05-11 14:01] LABS: CALCIUM 9.2 mg/dL (8.5-10.1); CREATININE 0.6 mg/dL (0.6-1.3); POTASSIUM 3.8 mmol/L (3.5-5.1)
== END ==
LOC: M.LAB 13:31
PROVIDERS: Nurse Practitioner
DX: I25.5 Ischemic cardiomyopathy (principal)

== ENCOUNTER 2018-08-21 16:38 | Inpatient (IN) | payer MEDICARE ==
[~2018-08-21] VITALS: Ht 149.9 cm; Wt 46.7 kg
[2018-08-21 16:39] VITALS: BP 134/80
[2018-08-21 23:06] VITALS: BP 118/66
--- NOTE | 2018-08-22 07:27 | NUR ---
PT CAME DOWN TO THE UNIT AT 2220. ADMISSION HISTORY/ASSESSMENT COMPLETED. ALERT AND ORIENTED. VITALS STABLE WITH 2L O2 BY NC. PT STATED SHE ONLY HAS PAIN WHEN SHE MOVES. NO NAUSEA OR VOIMITING. HOURLY ROUNDING COMPLETED. WILL CONTINUE TO MONITOR.
[2018-08-22 09:07] LABS: ABSOLUTE BASOPHILS 0.1 thou/uL (0.0-0.2); ABSOLUTE LYMPHOCYTES 1.1 thou/uL (0.8-5.3); ABSOLUTE MONOCYTES 0.6 thou/uL (0.0-1.2); ABSOLUTE NEUTROPHILS 8.4 thou/uL (1.6-8.1); BASOPHILS 0.6 %; EOSINOPHILS 0.3 %; HEMOGLOBIN 15.7 gm/dL (12.0-15.0); LYMPHOCYTES 10.7 %; MCH 33.8 pg (26.0-34.0); MCHC 35.7 g/dL (28.0-37.0); MCV 94.7 fL (80.0-100.0); MONOCYTES 6.1 %; NUCLEATED RBCS 0 /100WBC; PLATELET COUNT* 284 thou/uL (150-400); POLYS 82.3 %; RBC 4.65 mil/uL (4.20-5.00); RDW-CV 12.4 % (10.5-14.5); WBC 10.2 thou/uL (4.0-11.0)
[2018-08-22 09:14] LABS: CALCIUM 8.6 mg/dL (8.5-10.1); CREATININE 0.8 mg/dL (0.6-1.3); POTASSIUM 3.6 mmol/L (3.5-5.1)
[2018-08-22 10:15] VITALS: BP 121/66
[2018-08-22 15:32] VITALS: BP 120/73
--- NOTE | 2018-08-22 18:41 | NUR ---
PATIENT PLEASANT AND COOPERATIVE THRU SHIFT. PATIENT DENIES NEED FOR PAIN INTERVENTION/MEDICATION. PATIENT STATES SOME PAIN W/ TRANSFERS/AMBULATION. EATING WELL. PHYSICAL THERAPY IN TO SEE PATIENT DURING SHIFT. PATIENT UP TO CHAIR THIS AFTERNOON. ~JARRETTRN
[2018-08-22 20:15] VITALS: BP 127/78
--- NOTE | 2018-08-23 05:04 | NUR ---
PATIENT ALERT AND ORIENTED X 4 BUT FORGETFUL. DENIED NEED FOR PAIN MEEDICATION. POSITIONED CHANGE ENCOURAGED. VITAL SIGNS STABLE. DID NOT GET UP THIS SHIFT. VOID PER BEDPAN. O2 ON AT 2L/MIN. SCD'S IN PLACE WITH HEELS ELEVATED UP OFF OF BED. BED ALARM UTILIZED FOR SAFETY WITH HOURLY ROUNDS. CONTINUE TO MONITOR.
[2018-08-23 07:54] VITALS: BP 113/60
--- NOTE | 2018-08-23 08:09 | NUR ---
REVIEWED NURSING STUDENTS CHARTING AND AGREE WITH WHAT WAS CHARTED.
--- NOTE | 2018-08-23 15:00 | NUR ---
cm completed initial assessment to discuss d/c planning. pt a&ox4. pt states she lives alone but has family suport, also neighbor is very helpful, "almost bossy." pt states she is "very" independent and she drives. 0 DMEs. pt doesnt have hx w/snf, used [employer] in the past, but doesnt recall which company. no anticipated needs at this time. cm to remain available to assist as needed.
[2018-08-23 16:00] VITALS: BP 105/69
--- NOTE | 2018-08-23 16:27 | NUR ---
PT A&Ox4. VITALS STABLE. IV PATENT. UP WITH 1 TO CAMMODE. PAIN TOLERATED. DENIED NAUSEA. ON 2LOX. WORKED WELL WITH THERAPY. UP TO CHAIR FOR MEALS. FALL PRECAUTIONS IN PLACE. CALL LIGHT WITHIN REACH. WILL CONTINUE TO MONITOR.
[2018-08-23 22:00] VITALS: BP 125/82
[2018-08-24 07:30] VITALS: BP 116/73
[2018-08-24] MEDS ORDERED: FOSAMAX 70 MG T70 MG PO (07:39)
[2018-08-24] MEDS ORDERED: HYDROCODON-ACE1 EAC7 PO (07:39)
[2018-08-24] MEDS ORDERED: CALCIUM 500 +1 EAC5 PO (07:41)
[2018-08-24] MEDS ORDERED: ERGOCALCIF50000 UNIT PO (07:41)
--- NOTE | 2018-08-24 18:27 | NUR ---
ASSUMED CARE OF PATIENT AT APPROX 0730. ALERT AND OREINTED X4. ASSESSMENT COMPLETED AND CHARTED. VSS ON 2 LITERS 02. PAIN MANAGED WITH ORAL MEDICATION. NO COMPLAINTS OF NAUSEA OR SOA. PATIENT WORKED WITH THERAPIES AND PROGRESSED TOWARD GOALS. PATIENT UP WITH GAIT BELT AND WALKER. FALL PRECAUTIONS IN PLACE. CALL LIGHT WITHIN REACH. HOURLY ROUNDS COMPLETED. WILL CONTINUE TO MONITOR.
[2018-08-24 19:30] VITALS: BP 106/66
--- NOTE | 2018-08-25 04:52 | NUR ---
PATIENT HAS REMAINED ALERT AND ORIENTED X 4 THROUGHOUT THE SHIFT AND RESTING QUIETLY ON HOURLY ROUNDS. HAS DENIED NEED FOR PAIN MEDICATION OVERNIGHT. UP WITH ASSIST OF ONE, GAIT BELT AND WALKER. SOME IMPROVEMENT WITH MOBILITY SKILLS. VITAL SIGNS STABLE. BED ALARM ON FOR SAFETY. CONTINUE TO MONITOR.
[2018-08-25 07:30] VITALS: BP 112/54
--- NOTE | 2018-08-25 18:14 | NUR ---
ASSUMED CARE OF PATIENT AT APPROX 0730. ALERT AND ORIENTED X4. ASSESSMENT COMPLETED AND CHARTED. VSS ON ROOM AIR. PAIN MINIMAL AND MANAGED WITH ORAL MEDICATIONS FOR THERAPIES. NO COMPLAINTS OF NAUSEA, OR SOA. PATIENT UP AND WALKING WITH WALKER AND GAIT BELT, PROGRESSING TOWARD GOALS. WALKING TO THE BATHROOM FOR VOIDING AND BOWEL MOVEMENT TODAY. REST AND EXERCISE COMPLETED THIS AFTERNOON, PATIENT STABLE ON ROOM AIR. FALL PRECAUTIONS IN PLACE. CALL LIGHT WITHIN REACH AND USES APPROPRIATELY. HOURLY ROUNDS COMPLETED. WILL CONTINUE TO MONITOR.
[2018-08-25 19:45] VITALS: BP 140/76
--- NOTE | 2018-08-26 03:59 | NUR ---
PATIENT HAS REMAINED ALERT AND ORIENTED X 4 THROUGHOUT THE SHIFT AND RESTING QUIETLY ON HOURLY ROUNDS. UP TO BR TO VOID. AMBULATED 100+ FEET IN HALLWAY BEFORE HS. SOME SHORTNESS OF AIR AND FATIGUE TOWARDS END OF WALK BUT RECOVERED WELL ONCE BACK TO BED. MEDICATED X 1 FOR PAIN. VITAL SIGNS STABLE ON RTOOM AIR. CONTINUE TO MONITOR.
[2018-08-26 07:40] VITALS: BP 113/74
[2018-08-26 09:22] VITALS: BP 113/74
[2018-08-26 10:02] VITALS: BP 113/74
--- NOTE | 2018-08-26 10:08 | NUR ---
Pt to d/c home with [facility]. Pt provider walker from [employer], PT to dispense from closet. CM to remain available to assist if needed.
--- NOTE | 2018-08-26 16:19 | NUR ---
PATIENT DISCHARGED TO HOME WITH HOME HEALTH WALKER AND GAIT BELT. IV DC'D. PATIENT GIVEN PRN HYDROCODONE FOR PAIN. VERBALIZES UNDERSTANDING OF PAPERWORK AND SCRIPTS. PATIENT TAKEN OUT VIA WHEELCHAIR WITH ALL BELONGINGS.
== END 2018-08-26 15:45 | disposition home health service (06) | DRG 543 ==
LOC: M.ERS 16:38 → M.ORTHSURG 21:10 → M.TBA-ER 21:10 → M.ORTHSURG 22:22 → M.2W 08-24 13:30 → M.ORTHSURG 08-24 13:34
PROVIDERS: ADMIT Internal Medicine
DX: M80.051A Age-related osteoporosis with current pathological fracture, right femur, initial encounter for fracture (principal); J98.11 Atelectasis; I10 Essential (primary) hypertension; J44.9 Chronic obstructive pulmonary disease, unspecified; W18.39XA Other fall on same level, initial encounter; Y93.01 Activity, walking, marching and hiking; M19.90 Unspecified osteoarthritis, unspecified site; Z86.12 Personal history of poliomyelitis; Z95.5 Presence of coronary angioplasty implant and graft; I25.2 Old myocardial infarction; Z87.891 Personal history of nicotine dependence; Y92.59 Other trade areas as the place of occurrence of the external cause; Y99.8 Other external cause status; Z79.82 Long term (current) use of aspirin; Z79.899 Other long term (current) drug therapy